=== PATIENT | female | born 1990 | race Caucasian/White ===

== ENCOUNTER 2020-09-28 13:36 | Emergency (ER) | payer OTHER ==
[~2020-09-28] VITALS: Ht 160 cm; Wt 45.4 kg
[2020-09-28] MEDS ORDERED: SINGULAIR 10 MG10 M1 PO (13:47)
[2020-09-28] MEDS ORDERED: SPIRONOLACTONE100 M1 PO (13:47)
[2020-09-28] MEDS ORDERED: NORCO 5-325 TA1 EAC2 PO (15:34)
[2020-09-28] MEDS ORDERED: KEFLEX500 M1 PO (15:34)
[2020-09-28 15:45] VITALS: BP 103/65
== END 2020-09-28 15:45 | disposition home or self-care (01) ==
LOC: M.ERS 13:36
DX: S02.2XXA Fracture of nasal bones, initial encounter for closed fracture (principal); S63.591A Other specified sprain of right wrist, initial encounter; S00.83XA Contusion of other part of head, initial encounter; V89.2XXA Person injured in unspecified motor-vehicle accident, traffic, initial encounter; Y93.89 Activity, other specified; Y92.89 Other specified places as the place of occurrence of the external cause; Y99.8 Other external cause status